=== PATIENT | female | born 1955 | race Hispanic/Latino ===

== ENCOUNTER 2017-01-04 09:07 | Outpatient (CLI) | payer OTHER ==
--- NOTE | 2017-01-04 14:09 | Mammography Report ---
BILATERAL DIGITAL SCREENING MAMMOGRAM with CAD: 01/04/17 CLINICAL: Routine screening. COMPARISON:None available. However, a prior mammogram was apparently done at [facility]. FINDINGS: The breasts are heterogeneously dense, which may obscure small masses. Bilateral marginal asymmetries require comparison with the prior mammogram. IMPRESSION: Bilateral asymmetries requiring further evaluation. BI-RADS CATEGORY: 0 -- Additional Evaluation Required RECOMMENDATION: Comparison with a previous mammogram. We will attempt to obtain a prior mammogram for comparison. If we do not obtain a prior mammogram within 30 days, a revised report will be issued recommending a recall for additional imaging. Please be advised that the patient should not schedule an appointment for return until adequate time (at least 2 weeks) has passed for us to obtain the prior mammogram. ACR BI-RADS MAMMOGRAPHIC CODES: 0 = Needs additional imaging evaluation; 1 = Negative; 2 = Benign; 3 = Probably benign; 4 = Suspicious; 5 = Malignant; 6 = Known biopsy-proven malignancy COMMENT: 1. Dense breast tissue, i.e., adenosis, fibrocystic changes, etc., may obscure an underlying neoplasm. 2. Approximately 10% of cancers are not detected with mammography. 3. A negative mammography report should not delay biopsy if a clinically suspicious mass is present. COMMENT: Patient follow-up letters are generated via our [employer] application.
== END 2017-01-04 09:08 | disposition home or self-care (01) ==
LOC: SPVWC 09:07
PROVIDERS: ATTEND Family Medicine
DX: Z12.31 Encounter for screening mammogram for malignant neoplasm of breast (principal)
CPT/HCPCS: 77067; G0202

== ENCOUNTER 2019-02-13 11:25 | Outpatient (CLI) | payer OTHER ==
--- NOTE | 2019-02-13 13:36 | Mammography Report ---
DIGITAL SCREENING MAMMOGRAM WITH CAD, 02/13/2019 INDICATION: Routine screening mammography. TECHNIQUE: Digital bilateral 2D mammography was obtained in the craniocaudal and mediolateral obliq ue projections. This examination was interpreted with the benefit of Computer-Aided Detection analysi s. COMPARISON: 01/17/2018 and 01/04/2017 FINDINGS: Breast Density: The breasts are heterogeneously dense, which may obscure small masses. Left asymmetry on both views requires additional imaging. No architectural distortion or suspicious c alcifications of the left breast. There is no evidence of dominant mass, suspicious calcifications or architectural distortion in the right breast. IMPRESSION: Left asymmetries requiring additional imaging. Recommend recall for left ML, rolled CC an d spot compression MLO and CC views and left breast ultrasound if needed. Follow up recommendation: Special View: Spot Category 0: Incomplete. Needs additional imaging evaluation and/or prior mammograms for comparison. A "normal" or negative report should not discourage follow up or biopsy of a clinically significant f inding. A written summary of these findings will be mailed to the patient. The patient will be entered into a mammography reporting system which will generate a reminder letter for the patient's next appointmen t at the appropriate interval. The [employer] recommends yearly mammograms starting at age 40 and continuing as l teri as a woman is in good health. Breast MRI is recommended for women with an approximate 20-25% or greater lifetime risk of breast cancer, including women with a strong family history of breast or ova antonio cancer or who have been treated for Hodgkin's disease. Signer Name: Naman Boo MD Signed: 02/13/2019 1:32 PM Workstation Name: [id number]
== END 2019-02-13 11:26 | disposition home or self-care (01) ==
LOC: SPVWC 11:25
PROVIDERS: ATTEND Family Medicine
DX: Z12.31 Encounter for screening mammogram for malignant neoplasm of breast (principal)
CPT/HCPCS: 77067

== ENCOUNTER 2019-03-06 09:55 | Outpatient (CLI) | payer OTHER ==
--- NOTE | 2019-03-06 11:10 | Ultrasound Report ---
LEFT DIGITAL DIAGNOSTIC MAMMOGRAM WITH CAD -- 03/06/2019 LEFT LIMITED BREAST ULTRASOUND INDICATION: Evaluate finding noted previously in the left breast. TECHNIQUE: Digital left mammographic imaging was performed. Spot compression views were obtained. Li mited ultrasound was performed. This examination was interpreted with the benefit of Computer-Aided D etection (CAD) analysis. COMPARISON: 02/13/2019, 01/17/2018, 01/04/2017 FINDINGS: Breast Density: The breasts are heterogeneously dense, which may obscure small masses. Additional views focused on the left slightly upper outer breast were performed to evaluate the site of a previously noted focal asymmetry seen on the recent screening mammogram. The finding does not p ersist on the additional images and there stable mammographic appearance in this region compared to m galileatiple prior mammograms. Given the faint appearance of the initial finding, a targeted ultrasound wi ll be performed for confirmation. Ultrasound Findings: Targeted ultrasound evaluation was performed of the area of interest. No suspi cious solid or cystic lesions identified. No evidence of malignancy. IMPRESSION: No evidence of malignancy. A routine screening mammogram in one year is recommended. BI-RADS Category 1: Negative. Recommend routine screening mammography in one year. A "normal" or negative report should not discourage follow up or biopsy of a clinically significant f inding. A written summary of these findings will be mailed to the patient. The patient will be entered into a mammography reporting system which will generate a reminder letter for the patient's next appointmen t at the appropriate interval. According to the [employer], yearly mammograms are recommended starting at age 40 and continuing as long as a woman is in good health. Breast MRI is recommended for women with an lilibeth roximately 20-25% or greater lifetime risk of breast cancer, including women with a strong family his tory of breast or ovarian cancer and women who have been treated for Hodgkin's disease. Signer Name: Kvng Tobar MD Signed: 03/06/2019 11:06 AM Workstation Name: [id number]
== END 2019-03-06 09:56 | disposition home or self-care (01) ==
LOC: SPVWC 09:55
PROVIDERS: ATTEND Family Medicine
DX: R92.8 Other abnormal and inconclusive findings on diagnostic imaging of breast (principal)